=== PATIENT | female | born 1940 | race Caucasian/White ===

== ENCOUNTER 2023-02-16 08:42 | Day surgery (SDC) | payer MEDICARE, SELFPAY ==
[2023-02-11 11:10] VITALS: BMI 21.9
--- NOTE | 2023-02-13 08:09 | MHC.SHP ---
Pre-Procedural Eval Section A Date of Service: 02/13/23 The patient is an INPATIENT: No Changes since office visit: No Cold of Flu in the past 2 weeks, No New Medical Problems, No Changes in Medication and No Patient answered all questions The History & Physical has been completed within 30 days and I have reviewed it.: Yes Section B Chief Complaint: Age-related nuclear cataract, right eye Allergies: Allergies Allergy/AdvReac Type Severity Reaction Status Date / Time Sulfa (Sulfonamide Allergy Intermediate Hives Verified 02/11/23 11:09 Antibiotics) Plan Diagnosis/Plan: Unchanged I have reviewed the history and physical and performed a pertinent physical examination on my patient. No changes have occurred unless specified. Time Spent With Patient Time: Total time managing care of this patient today ____ minutes.
--- NOTE | 2023-02-13 10:37 | HO.ANESPROP2 ---
Documented by User: Pepper Scott NP 02/13/23 10:40 HPI - Anesthesia Eval Consult details Narrative: 82yo F for Right Cataract Extraction IOL Insertion PCP cleared No previous cataract on record PMFSH Past Medical History Medical History CVA (cerebral vascular accident) Elevated cholesterol Family history of anesthesia complication GERD (gastroesophageal reflux disease) HTN (hypertension) Hypothyroid Sleep apnea Surgical History Surgical History H/O colonoscopy History of bilateral carpal tunnel release Hx of cholecystectomy Hx of hysterectomy Social History Social History Are you a primary healthcare sales representative to a significant other at home: No Do you presently have visiting nurse or other home services: No Patient Tobacco Use Status: Former Tobacco user Quit Date: age 52 Tobacco use type: Cigarette Use of substances other than those prescribed or required for medical reasons: No Have you been hit, kicked, punched, or otherwise hurt by someone within the past year? If so, by whom?: No Are you DNR?: No Advance Directives Information Provided: Yes (as above noted) Advance Directives on File: No Recently lost weight without trying: Yes How much weight loss: 2-13 pounds Eating poorly because of decreased appetite: No Nutrition screen score: 3 Nutrition Risks: Surgical patient >75years Meds Allergies Allergy/AdvReac Type Severity Reaction Status Date / Time Sulfa (Sulfonamide Allergy Intermediate Hives Verified 02/11/23 11:09 Antibiotics) Home Medications Medication Instructions Recorded Confirmed Last Taken Type atorvastatin 10 mg tablet 10 mg PO BEDTIME 02/11/23 02/11/23 Unknown History levothyroxine 88 mcg tablet 88 mcg PO DAILY 02/11/23 02/11/23 Unknown History lisinopril 10 mg tablet 10 mg PO DAILY 02/11/23 02/11/23 Unknown History Exam Exam Date and Time: February 13, 2023 1037 Height,Weight and Vital Signs: Height 5 ft 2 in Weight 54.431 kg Assessment and Plan Assessment Anesthesia Assessment: Chart Reviewed Documented by User: Lisa Delgado MD 02/16/23 10:54 PMFSH Past Medical History Medical History CVA (cerebral vascular accident) Elevated cholesterol Family history of anesthesia complication GERD (gastroesophageal reflux disease) HTN (hypertension) Hypothyroid Sleep apnea Surgical History Surgical History H/O colonoscopy History of bilateral carpal tunnel release Hx of cholecystectomy Hx of hysterectomy History of Problems with Anesthesia: No Social History Social History Are you a primary healthcare sales representative to a significant other at home: No Do you presently have visiting nurse or other home services: No Patient Tobacco Use Status: Former Tobacco user Quit Date: age 52 Tobacco use type: Cigarette Use of substances other than those prescribed or required for medical reasons: No Have you been hit, kicked, punched, or otherwise hurt by someone within the past year? If so, by whom?: No Are you DNR?: No Advance Directives Information Provided: Yes (as above noted) Advance Directives on File: No Recently lost weight without trying: Yes How much weight loss: 2-13 pounds Eating poorly because of decreased appetite: No Nutrition screen score: 3 Nutrition Risks: Surgical patient >75years Meds Allergies Allergy/AdvReac Type Severity Reaction Status Date / Time Sulfa (Sulfonamide Allergy Intermediate Hives Verified 02/11/23 11:09 Antibiotics) Home Medications Medication Instructions Recorded Confirmed Last Taken Type atorvastatin 10 mg tablet 10 mg PO BEDTIME 02/11/23 02/11/23 Unknown History levothyroxine 88 mcg tablet 88 mcg PO DAILY 02/11/23 02/11/23 Unknown History lisinopril 10 mg tablet 10 mg PO DAILY 02/11/23 02/11/23 Unknown History Exam Airway Mallampati Class: II TM Dist: >3cm Neck ROM: Full Denture: Upper and Lower Loose/Missing/Broken Teeth: Yes, Upper and Lower Heart: RRR Lungs: CTA Assessment and Plan Assessment Anesthesia Assessment: Anesthesia Plan Discussed Final Anesthetic Review History of Problems with Anesthesia: No NPO: Yes ASA Class: III Final Preanesthetic Review: Meds/Allgs Chart Reviewed, Consent Obtained/Reviewed and Anes Risks/Benef Reviewed Patient Risk: Intermediate Procedure Risk: Low Anesthetic Plan Anesthetic Plan: MAC: Disposition: Standard PACU
[2023-02-16 10:49] VITALS: BP 112/34; PULSE 74; RESP 18; TEMP 36.8; O2SAT 99
[2023-02-16 10:58] VITALS: BMI 21.9
--- NOTE | 2023-02-16 11:40 | HO.PNOPHT ---
Ophthalmology Procedure Procedure Date of Service: 02/16/23 Ophthalmology Viscoelastic: Healkorey [place] Dual Pack Pro Ophthalmology Lenses: TECNIS [id number] (22.5) Procedure Notes: PREOPERATIVE DIAGNOSIS: Decreased visual acuity right eye secondary to cataract POSTOPERATIVE DIAGNOSIS: Same PROCEDURE: Right cataract extraction with intraocular lens insertion SURGEON: Cain Madera M.D. ANESTHESIA: Topical/MAC ESTIMATED BLOOD LOSS: None COMPLICATIONS: None After obtaining informed consent, the patient was brought to the operating room suite and placed in the supine position. After adequate sedation per anesthesia, topical drops of Tetracaine were given to the right eye. The eye was then prepped and draped in the usual sterile fashion. The operating room microscope was then positioned over the operative eye and a lid speculum placed. A paracentesis was created. Viscoelastic was then instilled into the anterior chamber. A three plane incision was then created temporally, utilizing a 2.85 mm keratome. Capsulotomy forceps were then utilized to create a circular tear capsulotomy. Hydrodissection and hydrodelineation were carried out until adequate mobilization of the nucleus occurred. Phacoemulsification was then utilized to remove the dense central nucleus followed by removal of the cortical material utilizing the automated aspiration irrigation unit. Viscoelastic was instilled into the posterior capsular bag followed by placement of a posterior chamber intraocular lens without difficulty. The residual Viscoelastic was then removed utilizing the automated IA machine. The wound was checked and found to be watertight. The patient tolerated the procedure well and the lid speculum was removed. Intracameral injection of Vigamox 0.1 mL followed by a subtenon injection of Kenalog-40 0.2 mL were administered. The patient will be seen in the a.m.
[2023-02-16 12:09] VITALS: BP 132/70; PULSE 70; RESP 16; TEMP 36.1; O2SAT 100
== END 2023-02-16 12:20 | disposition home or self-care (01) ==
PROVIDERS: PCP Nurse Practitioner Adult Health; Visit Provider Ophthalmology
PROC: (CPT 66985; principal; 2023-02-16 11:50)
DX: H25.11 Age-related nuclear cataract, right eye (principal); H54.7 Unspecified visual loss; I10 Essential (primary) hypertension; E78.5 Hyperlipidemia, unspecified
CPT/HCPCS: 66984; J3010; J3301; V2632

== ENCOUNTER 2023-03-02 07:57 | Day surgery (SDC) | payer MEDICARE, SELFPAY ==
[2023-02-11 11:12] VITALS: BMI 21.9
--- NOTE | 2023-02-27 08:08 | MHC.SHP ---
Pre-Procedural Eval Section A Date of Service: 02/27/23 The patient is an INPATIENT: No Changes since office visit: No Cold of Flu in the past 2 weeks, No New Medical Problems, No Changes in Medication and No Patient answered all questions The History & Physical has been completed within 30 days and I have reviewed it.: Yes Section B Chief Complaint: Age-related nuclear cataract, left eye Allergies: Allergies Allergy/AdvReac Type Severity Reaction Status Date / Time Sulfa (Sulfonamide Allergy Intermediate Hives Verified 02/11/23 11:09 Antibiotics) Plan Diagnosis/Plan: Unchanged I have reviewed the history and physical and performed a pertinent physical examination on my patient. No changes have occurred unless specified. Time Spent With Patient Time: Total time managing care of this patient today ____ minutes.
--- NOTE | 2023-02-27 14:54 | HO.ANESPROP2 ---
HPI - Anesthesia Eval Consult details Narrative: 82yo F for Left Cataract Extraction IOL Insertion PCP cleared Right eye 02/16/23: Fent 52 PMFSH Past Medical History Medical History CVA (cerebral vascular accident) Elevated cholesterol Family history of anesthesia complication GERD (gastroesophageal reflux disease) HTN (hypertension) Hypothyroid Sleep apnea Surgical History Surgical History H/O colonoscopy History of bilateral carpal tunnel release Hx of cholecystectomy Hx of hysterectomy History of Problems with Anesthesia: No Social History Social History Are you a primary personal care home administrator to a significant other at home: No Do you presently have visiting nurse or other home services: No Patient Tobacco Use Status: Former Tobacco user Quit Date: age 52 Tobacco use type: Cigarette Use of substances other than those prescribed or required for medical reasons: No Have you been hit, kicked, punched, or otherwise hurt by someone within the past year? If so, by whom?: No Are you DNR?: No Advance Directives Information Provided: Yes (as above noted) Advance Directives on File: No Recently lost weight without trying: Yes How much weight loss: 2-13 pounds Eating poorly because of decreased appetite: No Nutrition screen score: 3 Nutrition Risks: Surgical patient >75years Meds Allergies Allergy/AdvReac Type Severity Reaction Status Date / Time Sulfa (Sulfonamide Allergy Intermediate Hives Verified 02/11/23 11:09 Antibiotics) Home Medications Medication Instructions Recorded Confirmed Last Taken Type atorvastatin 10 mg tablet 10 mg PO BEDTIME 02/11/23 02/11/23 Unknown History levothyroxine 88 mcg tablet 88 mcg PO DAILY 02/11/23 02/11/23 Unknown History lisinopril 10 mg tablet 10 mg PO DAILY 02/11/23 02/11/23 Unknown History Exam Exam Date and Time: February 27, 2023 1454 Height,Weight and Vital Signs: Height 5 ft 2 in Weight 54.431 kg Assessment and Plan Assessment Anesthesia Assessment: Chart Reviewed Final Anesthetic Review History of Problems with Anesthesia: No
[2023-03-02 09:08] VITALS: BP 119/59; PULSE 61; RESP 16; TEMP 35.9; O2SAT 98
[2023-03-02] MEDS: Tetracaine HCl/PF 0.5% Oph Sol 4 ML DROPS 1 DROP EYE-LEFT (09:13)
[2023-03-02] MEDS: Cyclopentolate 1 % Ophth Sol 2 ML DRPBTL 1 DROP EYE-LEFT ×3 (09:14→09:30)
[2023-03-02] MEDS: Tropicamide 1 % Ophth Sol 3 ML BTL 1 DROP EYE-LEFT ×3 (09:16→09:31)
[2023-03-02] MEDS: Ketorolac Tromethamine 0.5% Op 5 ML DROPS 1 DROP EYE-LEFT ×3 (09:18→09:32)
--- NOTE | 2023-03-02 09:18 | HO.ANESPROP2 ---
[facility] Past Medical History Medical History CVA (cerebral vascular accident) Elevated cholesterol Family history of anesthesia complication GERD (gastroesophageal reflux disease) HTN (hypertension) Hypothyroid Sleep apnea Family History Family history of problems with anesthesia: No Surgical History Surgical History H/O colonoscopy History of bilateral carpal tunnel release Hx of cholecystectomy Hx of hysterectomy History of Problems with Anesthesia: No Social History Social History Are you a primary adult care provider to a significant other at home: No Do you presently have visiting nurse or other home services: No Patient Tobacco Use Status: Former Tobacco user Quit Date: age 52 Tobacco use type: Cigarette Use of substances other than those prescribed or required for medical reasons: No Have you been hit, kicked, punched, or otherwise hurt by someone within the past year? If so, by whom?: No Are you DNR?: No Advance Directives Information Provided: Yes (as above noted) Advance Directives on File: No Recently lost weight without trying: Yes How much weight loss: 2-13 pounds Eating poorly because of decreased appetite: No Nutrition screen score: 3 Nutrition Risks: Surgical patient >75years Meds Allergies Allergy/AdvReac Type Severity Reaction Status Date / Time Sulfa (Sulfonamide Allergy Intermediate Hives Verified 03/02/23 09:01 Antibiotics) Active Medications: Current Medications Lactated Ringer's (Lr) 500 mls @ 50 mls/hr IV .Q10H TERESA Stop: 03/02/23 18:59 Povidone Iodine (Povidone Iodine 5 % Ophth Soln 30 Ml Bottle) 1 appl EYE-LEFT PREOP PRN PRN Reason: Pre-Op Surgical Implant Prophy Home Medications Medication Instructions Recorded Confirmed Last Taken Type atorvastatin 10 mg tablet 10 mg PO BEDTIME 02/11/23 02/11/23 Unknown History levothyroxine 88 mcg tablet 88 mcg PO DAILY 02/11/23 02/11/23 03/02/23 06:30 History lisinopril 10 mg tablet 10 mg PO DAILY 02/11/23 02/11/23 Unknown History Exam Exam Date and Time: March 02, [id number] Height,Weight and Vital Signs: Height 5 ft 2 in Weight 54.431 kg Last Vital Signs Temp 96.6 F L 03/02/23 09:08 Pulse 61 03/02/23 09:08 Resp 16 03/02/23 09:08 BP 119/59 L 03/02/23 09:08 Pulse Ox 98 03/02/23 09:08 O2 Del Method Room Air 03/02/23 09:08 Airway Mallampati Class: II TM Dist: >3cm Neck ROM: Full Assessment and Plan Assessment Anesthesia Assessment: Anesthesia Plan Discussed and Chart Reviewed Final Anesthetic Review Family History of Problems with Anesthesia: No History of Problems with Anesthesia: No NPO: Yes ASA Class: II Final Preanesthetic Review: No Changes in Pt Med Stat, Meds/Allgs Chart Reviewed, Consent Obtained/Reviewed and Anes Risks/Benef Reviewed Patient Risk: Intermediate Procedure Risk: Low Anesthetic Plan Anesthetic Plan: MAC: Disposition: Standard PACU
[2023-03-02] MEDS: Phenylephrine HCL 2.5% Oph SoL 2 ML BOTTLE 1 DROP EYE-LEFT ×3 (09:19→09:33)
[2023-03-02] MEDS: Lactated Ringers 500 ML 50 ML IV (09:34)
--- NOTE | 2023-03-02 10:35 | HO.PNOPHT ---
Ophthalmology Procedure Procedure Date of Service: 03/02/23 Ophthalmology Viscoelastic: Healkorey Duet Dual Pack Pro Ophthalmology Lenses: TECLISSETTE [id number] (22) Procedure Notes: PREOPERATIVE DIAGNOSIS: Decreased visual acuity left eye secondary to cataract POSTOPERATIVE DIAGNOSIS: Same PROCEDURE: Left cataract extraction with intraocular lens insertion SURGEON: Cain Madera M.D. ANESTHESIA: Topical/MAC ESTIMATED BLOOD LOSS: None COMPLICATIONS: None After obtaining informed consent, the patient was brought to the operation room suite and placed in the supine position. After adequate sedation per anesthesia, topical drops of Tetracaine were given to the left eye. The eye was then prepped and draped in the usual sterile fashion. The operating room microscope was then positioned over the operative eye and a lid speculum placed. A paracentesis was created. Viscoelastic was then instilled into the anterior chamber. A three plane incision was then created temporally, utilizing a 2.85 mm keratome. Capsulotomy forceps were then utilized to create a circular tear capsulotomy. Hydrodissection and hydrodelineation were carried out until adequate mobilization of the nucleus occurred. Phacoemulsification was then utilized to remove the dense central nucleus followed by removal of the cortical material utilizing the automated aspiration irrigation unit. Viscoat elastic was instilled into the posterior capsular bag followed by placement of a posterior chamber intraocular lens without difficulty. The residual Viscoat elastic was then removed utilizing the automated IA machine. The wound was check and found to be watertight. The patient tolerated the procedure well and the lid speculum was removed. Intracameral injection of Vigamox 0.1 mL followed by a subtenon injection of Kenalog-40 0.2 mL were administered. The patient will be seen in the a.m.
[2023-03-02 11:12] VITALS: BP 131/53; PULSE 67; RESP 18; TEMP 36.3; O2SAT 100
== END 2023-03-02 11:15 | disposition home or self-care (01) ==
PROVIDERS: PCP Nurse Practitioner Adult Health; Visit Provider Ophthalmology
PROC: (CPT 66985; principal; 2023-03-02 10:30)
DX: H25.12 Age-related nuclear cataract, left eye (principal); H54.7 Unspecified visual loss; I10 Essential (primary) hypertension; E78.5 Hyperlipidemia, unspecified; Z87.891 Personal history of nicotine dependence; Z79.899 Other long term (current) drug therapy
CPT/HCPCS: 66984; J3010; J3301; V2632